=== PATIENT | male | born 1945 | race Caucasian/White ===

== ENCOUNTER 2023-10-30 12:47 | Emergency (ER) | payer MEDICARE, SELFPAY ==
--- NOTE | ~2023-10-30 | XR_ITS ---
XR foot LT 2V DATE: 10/30/2023 13:46 INDICATION: Rolled ankle yesterday. Left ankle and foot pain TECHNIQUE: AP and lateral views COMPARISON: None FINDINGS: Mild plantar calcaneal enthesopathy. No fracture or dislocation, periosteal reaction or bone destruction of the left foot is detected. Soft tissue swelling is noted at the ankle, greater laterally. IMPRESSION: Ankle soft tissue swelling Mild plantar calcaneal enthesopathy Reviewed, dictated and finalized at location A.
--- NOTE | ~2023-10-30 | XR_ITS ---
XR ankle LT min 3V DATE: 10/30/2023 13:46 INDICATION: Rolled ankle yesterday. Left ankle and foot pain TECHNIQUE: 4 views COMPARISON: None FINDINGS: There is soft tissue swelling, lateral greater than medial. There is a 1-2 mm bony density inferomedial to the tip of the medial malleolus which may relate mass. Small cortical avulsion fractu re of uncertain age. No other fracture or dislocation of the ankle or disruption of the ankle mortise. Mild plantar calcaneal enthesopathy. IMPRESSION: Soft tissue swelling, lateral greater than medial 1 to 2 mm bony density subjacent to the medial malleolus, possibly a small cortical avulsion fracture of undetermined age Reviewed, dictated and finalized at location A. IMPRESSION: Soft tissue swelling, lateral greater than medial 1 to 2 mm bony density subjacent to the medial malleolus, possibly a small ha ical avulsion fracture of undetermined age
[2023-10-30 12:48] VITALS: BP 136/59; PULSE 72; RESP 16; TEMP 36.8; O2SAT 98
--- NOTE | 2023-10-30 13:23 | ED.GENADULT ---
HPI - General Adult General Chief complaint: Extremity Injury, Lower Stated complaint: left foot pain Time Seen by Provider: 10/30/23 12:58 Source: patient Mode of arrival: ambulatory Limitations: no limitations History of Present Illness HPI narrative: This is a 78-year-old male who presents to the ED with chief complaint of left foot and ankle pain x1 day. 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 Patient states that he was climbing up onto a tilt trailer and since it did not have the pin in it, it tilted over. He reports that he subsequently twisted the left ankle. States he is able to bear a little weight a beginning but weight-bearing has become very difficult to pain. Endorses swelling. Denies any pop. Denies numbness or weakness. Related Data Allergies Allergy/AdvReac Type Severity Reaction Status Date / Time Penicillins Allergy Unknown Hives / Verified 10/30/23 13:00 Red Face tetracycline AdvReac Unknown Nausea and Verified 10/30/23 13:00 Vomiting Review of Systems Review of Systems: All systems as dictated in HPI Exam Narrative: GENERAL: Well-appearing, well-nourished, and in no acute distress. HEAD: Normocephalic, atraumatic. EYES: PERRLA and EOMI. ENT: Nares clear, no rhinorrhea or epistaxis. Mucous membranes moist. Oropharynx without tonsillar hypertrophy exudate or other lesions. NECK: Supple. No adenopathy or masses. CHEST: No respiratory distress. Clear to auscultation. No wheezes rales or rhonchi HEART: Regular rate and rhythm. No murmur heard. Normal peripheral pulses. ABDOMEN: Soft, nontender, nondistended, normal active bowel sounds. MSK: Left lower extremity: Left ankle joint effusion noted. Tenderness throughout the left ankle joint. No deformity. Neurovascularly intact distally. Compartments soft Right lower extremity: Benign SKIN: Warm, dry, no rash. NEURO: Alert and oriented x3. No focal deficits. PSYCH: Normal mood and affect. Course Vital Signs Vital signs: Vital Signs Temperature 98.2 F 10/30/23 12:48 Pulse Rate 72 10/30/23 12:48 Respiratory Rate 16 10/30/23 12:48 Blood Pressure 136/59 L 10/30/23 12:48 Pulse Oximetry 98 10/30/23 12:48 Oxygen Delivery Room Air 10/30/23 12:48 Temperature 97.9 F 10/30/23 14:40 Pulse Rate 66 10/30/23 14:40 Respiratory Rate 15 10/30/23 14:40 Blood Pressure 140/73 10/30/23 14:40 Pulse Oximetry 99 10/30/23 14:40 Oxygen Delivery Room Air 10/30/23 12:48 Medical Decision Making MDM Narrative Medical decision making narrative: This is a 78-year-old male who presents to the ED with chief complaint of an ankle twisting injury that occurred yesterday. Vitals are normal. Exam shows swelling to the left ankle. Foot and ankle x-rays: Soft tissue swelling, lateral greater than medial 1 to 2 mm bony density subjacent to the medial malleolus, possibly a small cortical avulsion fracture of undetermined age?. Overall symptoms and presentation are most likely consistent with ankle sprain. He was given Shay wrap here. Pt will be discharged in stable condition. Return precautions given and supportive measures discussed. Pt is understanding and agreeable with plan for discharge and follow-up with PCP. Vital Signs Vital Signs: Vital Signs Temperature 98.2 F 10/30/23 12:48 Pulse Rate 72 10/30/23 12:48 Respiratory Rate 16 10/30/23 12:48 Blood Pressure 136/59 L 10/30/23 12:48 Pulse Oximetry 98 10/30/23 12:48 Oxygen Delivery Room Air 10/30/23 12:48 Temperature 97.9 F 10/30/23 14:40 Pulse Rate 66 10/30/23 14:40 Respiratory Rate 15 10/30/23 14:40 Blood Pressure 140/73 10/30/23 14:40 Pulse Oximetry 99 10/30/23 14:40 Oxygen Delivery Room Air 10/30/23 12:48 Discharge Plan Discharge Clinical Impression: Ankle sprain and strain Patient Disposition: Home, Self-Care Condition: Stable Instructions: Antibiotic
[2023-10-30 14:40] VITALS: BP 140/73; PULSE 66; RESP 15; TEMP 36.6; O2SAT 99
== END 2023-10-30 14:42 | disposition home or self-care (01) ==
PROVIDERS: Emergency Provider Physician Assistant; PCP Internal Medicine
DX: S93.402A Sprain of unspecified ligament of left ankle, initial encounter (principal); S96.912A Strain of unspecified muscle and tendon at ankle and foot level, left foot, initial encounter; M77.32 Calcaneal spur, left foot; W30.89XA Contact with other specified agricultural machinery, initial encounter
CPT/HCPCS: 73610; 73620; 99283